=== PATIENT | male | born 1975 | race African-American/Black ===

== ENCOUNTER 2021-07-14 23:12 | Emergency (ER) | payer OTHER ==
[~2021-07-14] VITALS: Ht 180.3 cm; Wt 84.0 kg
[2021-07-15] MEDS ORDERED: TAMSULOSIN HCL 0.4MG SR CAPSULE PO ONE (04:00)
[2021-07-15] MEDS ORDERED: KETOROLAC 60MG/2ML VIAL IM ONE (04:00)
[2021-07-15] MEDS ORDERED: HYDROCODONE/ACETAMINOPHEN 5/325MG TABLET PO ONE (04:00)
[2021-07-15 05:42] LABS: CLARITY URINE CLEAR (CLEAR); COLOR URINE YELLOW (YELLOW); KETONES URINE NEGATIVE (NEGATIVE); LEUKOCYTE ESTERASE URINE TRACE (NEGATIVE); NITRITE URINE NEGATIVE (NEGATIVE); OCCULT BLOOD URINE TRACE (NEGATIVE); PROTEIN URINE NEGATIVE (NEGATIVE); SPECIFIC GRAVITY URINE 1.008 (1.005-1.030); UROBILINOGEN URINE 0.2 E.U./dL (0.2-1.0)
[2021-07-15] MEDS ORDERED: IBUP-2028 MT (06:28)
[2021-07-15] MEDS ORDERED: TAMS-11 MT (06:28)
[2021-07-15] MEDS ORDERED: MORP15TA67 MT (06:28)
[2021-07-15 06:40] VITALS: BP 141/96
== END 2021-07-15 06:49 | disposition home or self-care (01) ==
LOC: ER 23:12
DX: N20.0 Calculus of kidney (principal)
CPT/HCPCS: 71045; 76770; 81003; 96372; 99285; J1885